=== PATIENT | male | born 1945 | race Caucasian/White ===

== ENCOUNTER → 2016-09-03 | Outpatient (CLI) | payer OTHER ==
--- NOTE | 2016-09-03 18:00 | DX ---
Left knee, 3 views. September 03, 2016. HISTORY: Bony fullness below patella. FINDINGS: Hypertrophic changes compatible with prior Reubens-Schlatter's disease involve the tibial tu bercle, with a horizontal lucency through the tip of the tibial tubercle suggestive of fracture, acut e versus remote. Features of enthesopathy also identified at the quadriceps tendon insertion upon the upper pole of th e patella. Moderate patellofemoral degenerative changes. There is also mild medial compartment joint space narro wing. Lateral compartment is preserved. No fracture or joint effusion. IMPRESSION: 1. Hypertrophic changes of the tibial tubercle, with transverse lucency suggestive of fracture, acute versus prior. 2. Degenerative changes, left knee.
== END ==
LOC: FIMAGING 13:43
PROVIDERS: ATTEND Internal Medicine
DX: M89.9 Disorder of bone, unspecified (principal); M17.12 Unilateral primary osteoarthritis, left knee

== ENCOUNTER 2016-12-17 16:36 | Day surgery (SDC) | payer OTHER ==
[2016-12-17] MEDS ORDERED: NS 1,000 ML IV SCH (17:00)
[2016-12-17] MEDS ORDERED: FLUMAZENIL 0.5 MG/5 ML MDV IVP ONE (17:20)
[2016-12-17] MEDS ORDERED: MIDAZOLAM 2 MG/2 ML VIAL ONE (17:20)
[2016-12-17] MEDS ORDERED: NALOXONE HCL 0.4 MG/ML INJ ONE (17:20)
[2016-12-17] MEDS ORDERED: fentaNYL 100 MCG/2 ML INJ ONE (17:22)
[2016-12-17] MEDS ORDERED: LIDOCAINE 1% 30 ML SDV ONE (17:58)
[2016-12-17] MEDS ORDERED: IOPAMIDOL (ISOVUE-300) 100 ML BTL IV ONE (17:58)
[2016-12-17] MEDS ORDERED: HYDROCODONE/APAP 10/325 TAB ONE (18:34)
[2016-12-17] MEDS ORDERED: HYDROCODONE/APAP 10/325 TAB PO PRN (18:39)
[2016-12-17] MEDS ORDERED: ACETAMINOPHEN 325 MG TAB PO PRN (18:39)
[2016-12-17] MEDS ORDERED: ONDANSETRON 4 MG/2 ML VIAL IVP PRN (18:40)
== END 2016-12-17 19:15 | disposition home or self-care (01) ==
LOC: FIMAGING 16:36
PROVIDERS: ATTEND Specialist
PROC: BT1D1ZZ Fluoroscopy of Right Kidney, Ureter and Bladder using Low Osmolar Contrast (ICD-10-PCS; principal; 2016-12-17 18:25)
PROC: 0T9030Z Drainage of Right Kidney with Drainage Device, Percutaneous Approach (ICD-10-PCS; principal; 2016-12-17 18:25)
DX: N13.2 Hydronephrosis with renal and ureteral calculous obstruction (principal)
CPT/HCPCS: 50432; 99152; C1729; C1769; J0696; J1644; J2250; J2310; J3010; Q9967

== ENCOUNTER → 2016-12-24 | Day surgery (SDC) | payer OTHER ==
[~2016-12-24] MED LIST: IOPAMIDOL (ISOVUE-300) 100 ML BTL IV ONE
== END | disposition home or self-care (01) ==
LOC: FIMAGING 14:42
PROVIDERS: ATTEND Physician Assistant Medical
PROC: 3E0K7KZ Introduction of Other Diagnostic Substance into Genitourinary Tract, Via Natural or Artificial Opening (ICD-10-PCS; principal; 2016-12-24)
PROC: BT16YZZ Fluoroscopy of Right Ureter using Other Contrast (ICD-10-PCS; principal; 2016-12-24)
DX: Z43.6 Encounter for attention to other artificial openings of urinary tract (principal); N20.2 Calculus of kidney with calculus of ureter
CPT/HCPCS: Q9967

== ENCOUNTER 2017-01-16 10:42 | Inpatient (IN) | payer OTHER ==
--- NOTE | 2017-01-15 19:57 | GHP ---
[f rep st] PREOP HISTORY AND PHYSICAL DATE OF ADMISSION: 01/16/2017 ADMISSION DIAGNOSIS: Nonfunctioning right kidney. HISTORY OF PRESENT ILLNESS: This is a 71-year-old gentleman, who has a complicated stone history, a nd presently he has nephrostomy tube draining a right hydronephrotic kidney that has a creatinine cl earance of 1. He is to undergo right robotic-assisted nephrectomy. PAST MEDICAL HISTORY: Atherosclerosis of the aorta, hypertension, kidney stones, ureteral stricture . PAST SURGERY: Back surgery, cholecystectomy, kidney stone surgery, knee. MEDICATIONS: Lisinopril, Uribel, Urocit-K. ALLERGIES: None. FAMILY HISTORY: Noncontributory. SOCIAL HISTORY: Nonsmoker and nondrinker. REVIEW OF SYSTEMS: Negative cardiac, respiratory, GI, and endocrine. PHYSICAL EXAMINATION: VITAL SIGNS: Stable. CHEST: Clear. HEART: Regular rate and rhythm. ABDO MEN: Normal. No organomegaly, rebound, or guarding. LOWER EXTREMITIES: Normal. PLAN: At the present time, he is admitted for a right robotic-assisted nephrectomy and partial uret erectomy. /[id number]/MODL
[~2017-01-16 10:42] MED LIST changes: +BUPIVACAINE 0.5% 30 ML SDV ONE; +D5W LR 1,000 ML IV ONE; -IOPAMIDOL (ISOVUE-300) 100 ML BTL IV ONE; +SURGIFLO MATRIX KIT WITH THROMBIN TP ONE; +THROMBIN (BOVINE) 5,000 UNIT VIAL TP ONE; +ceFAZolin 2 GM/DEXTROSE 100 ML IV ONE
[2017-01-16] MEDS ORDERED: fentaNYL 100 MCG/2 ML INJ ONE ×2 (11:06→16:12)
[2017-01-16] MEDS ORDERED: DEXAMETHASONE 4 MG/ML VIAL ONE (11:06)
[2017-01-16] MEDS ORDERED: HYDROmorphONE/DILAUDID 2 MG/ML INJ ONE (11:06)
[2017-01-16] MEDS ORDERED: LIDOCAINE 2% 100 MG/5 ML SYR ONE (11:06)
[2017-01-16] MEDS ORDERED: ROCURONIUM 50 MG/5 ML VIAL ONE (11:06)
[2017-01-16] MEDS ORDERED: SUGAMMADEX SODIUM 200 MG/2 ML VIAL IVP ONE (11:06)
[2017-01-16] MEDS ORDERED: ONDANSETRON 4 MG/2 ML VIAL ONE (11:06)
[2017-01-16] MEDS ORDERED: PROPOFOL 200 MG/20 ML VIAL ONE (11:07)
[2017-01-16] MEDS ORDERED: CEFAZOLIN 2 GM/DEXTROSE/100 ML BAG IV ONE (11:41)
[2017-01-16 11:47] LABS: % IMMATURE GRANULYOCYTES 0.3 % (0.0-1.1); ABSOLUTE IMMATURE GRANULOCYTES 0.02 10^3/uL (0.00-0.10); ADD DIFF? NO; ADD MORPH? NO; ADD SCAN? NO; ATYPICAL LYMPHOCYTE FLAG 0 (0-99); FRAGMENT RBC FLAG 0 (0-99); HEMATOCRIT 42.2 % (40.0-51.0); HEMOGLOBIN 14.8 g/dL (13.7-17.5); LEFT SHIFT FLG 0 (0-99); LIPEMIA HEMOLYSIS FLAG 90 (0-99); MEAN CELL HEMOGLOBIN CONCENTR. 35.1 g/dL (32.4-36.7); MEAN CELL VOLUME 94.2 fL (81.5-99.8); MEAN PLATELET VOLUME 10.9 fL (8.7-11.7); PLATELET CLUMPS FLAG 0 (0-99); PLATELET COUNT 203 10^3/uL (150-400); RED BLOOD CELL COUNT 4.48 10^6/uL (4.40-6.38); RED CELL DISTRIBUTION WIDTH 11.8 % (11.5-15.2)
[2017-01-16] MEDS ORDERED: MIDAZOLAM 2 MG/2 ML VIAL ONE (12:14)
[2017-01-16] MEDS ORDERED: PHENYLEPHRINE HCL 100 MCG/ML SYR ONE (12:52)
[2017-01-16] MEDS ORDERED: ROCURONIUM 100 MG/10 ML VIAL ONE (13:31)
[2017-01-16] MEDS ORDERED: BUPIVACAINE/EPI 0.5% 30 ML SDV ONE (13:40)
--- NOTE | 2017-01-16 16:14 | GOP ---
[f rep st] OPERATIVE REPORT DATE OF OPERATION: SURGEON: John Rod MD TRAIN STARTER: Viviana Westbrook CFA ANESTHESIA: General. ANESTHESIOLOGIST: Chon Aparicio MD PREOPERATIVE DIAGNOSIS: Hydronephrotic nonfunctioning right kidney. POSTOPERATIVE DIAGNOSIS: Hydronephrotic nonfunctioning right kidney. PROCEDURE PERFORMED: Right robotic-assisted nephrectomy with partial ureterectomy. FINDINGS: SPECIMENS: Sent to Pathology. He will be admitted for postoperative care. I will discuss the issues with his postop. ESTIMATED BLOOD LOSS: Per Anesthesia was 50 mL. DESCRIPTION OF PROCEDURE: This gentleman underwent general anesthesia. After being appropriately p laced on the table, and identifying the correct side, his nephrostomy tube was removed, and then he was prepped and draped in normal sterile fashion. After an appropriate time-out, the procedure was begun. The Veress needle was placed in Samuel point on the right side and insufflated the abdomen to 15 mmH g pressure with CO2. Then, a midclavicular camera port was placed 12 mm under vision, and then the two 8 mm ports, and a 15 mm behavioral modification assistant port were placed in appropriate selected sites. Intraabdomina l inspection revealed no significant pathology. At that point, the right hemicolon was dissected al jeison the white line of Toldt and was mobilized. I could identify the duodenum, which was mobilized. I then identified the ureter. There was a diffuse inflammatory reaction with a lot of lymphedema a round the kidney, renal pelvis, and vessels. So, the dissection was taken meticulously, where I cou ld identify the renal arteries. The smaller lower pole artery was Hem-o-gilles'd with 2 clamps on the patient's side, 1 on the specimen side. Then, when I got to the main renal pelvis, renal vein, and renal artery, that was managed with a 60 mm vascular stapler, and then mobilized the kidney, and the ureter was opened up just above the site of obstruction. Then, the gonadal vessels were clamped with a vascular stapler. Then, continued to do the dissection around the kidney, and the h emostasis applied with the vascular stapler and electrocautery. Then, at the end of the procedure, I decreased the abdominal pressure to 5 mmHg. There was no welling and no bleeding identified. At that point, the specimen was placed in a bag through the 15 mm port. Then closed the camera port wi th a fascial closure stitch of 0 Vicryl. Then opened the behavioral modification assistant port to the point where I could retrieve the specimen through that site, and then reapproximated the anterior rectus sheath and the peritoneum with a running 0 Vicryl. It was felt that there was no tension on the closure and no gap s between the sutures on this closure. Subcutaneous tissue was irrigated. The skin was approximate d with 4-0 Monocryl. I elected not to place a drain. /[id number]/MODL
[2017-01-16] MEDS ORDERED: HYDROmorphONE/DILAUDID 1 MG/ML SYR ONE (16:42)
[2017-01-16] MEDS ORDERED: FLUTICASONE NASAL 120 SPRAYS/16 GM MDI EACHNARE PRN (17:05)
[2017-01-16] MEDS ORDERED: NON-FORMULARY NEW DRUG (Oxycodone Hcl/Acetaminophen [Percocet 10-325 Mg Tablet] 1 EACH) PO PRN (17:05)
[2017-01-16] MEDS ORDERED: ZOLPIDEM TARTRATE 5 MG TAB PO PRN (17:06)
[2017-01-16] MEDS ORDERED: ACETAMINOPHEN 325 MG TAB PO PRN (17:06)
[2017-01-16] MEDS ORDERED: D5W LR 1,000 ML IV SCH (17:15)
[2017-01-16] MEDS ORDERED: oxyCODONE IR 5 MG TAB PO PRN (17:51)
[2017-01-16] MEDS ORDERED: OXYCODONE/APAP 5/325 TAB PO PRN (17:51)
[2017-01-16] MEDS: HYDROmorphONE/DILAUDID 1 MG/ML SYR IVP PRN ×2 (17:54→21:56)
[2017-01-16] MEDS: ONDANSETRON 4 MG/2 ML VIAL IVP PRN ×2 (18:07→21:56)
[2017-01-16] MEDS: OXYCODONE/APAP 5/325 TAB PO PRN (19:57)
[2017-01-16] MEDS: ONDANSETRON DISINTEGRATING 4 MG TAB PO PRN (20:57)
[2017-01-16] MEDS ORDERED: MAG HYDROX/AL HYDROX/SIMETH 30 ML UDCUP PO PRN (23:00)
[2017-01-16] MEDS ORDERED: NALOXONE HCL 0.4 MG/ML INJ IVP PRN (23:01)
[2017-01-16] MEDS ORDERED: LORazepam 1 MG/0.5 ML UDSYR PO ONE (23:15)
[2017-01-16] MEDS: CITALOPRAM 20 MG TAB PO SCH (23:26)
[2017-01-16] MEDS: HYDROmorphONE/DILAUDID 6 MG/30 ML PCA IV PRN (23:26)
[2017-01-16] MEDS: LISINOPRIL 10 MG TAB PO SCH (23:27)
[2017-01-17 05:05] LABS: % IMMATURE GRANULYOCYTES 0.4 % (0.0-1.1); ABSOLUTE IMMATURE GRANULOCYTES 0.04 10^3/uL (0.00-0.10); ADD DIFF? NO; ADD MORPH? NO; ADD SCAN? NO; ATYPICAL LYMPHOCYTE FLAG 0 (0-99); FRAGMENT RBC FLAG 0 (0-99); HEMOGLOBIN 13.8 g/dL (13.7-17.5); LEFT SHIFT FLG 0 (0-99); LIPEMIA HEMOLYSIS FLAG 90 (0-99); MEAN CELL HEMOGLOBIN 32.9 pg (27.9-34.1); MEAN CELL HEMOGLOBIN CONCENTR. 34.5 g/dL (32.4-36.7); MEAN CELL VOLUME 95.2 fL (81.5-99.8); MEAN PLATELET VOLUME 10.9 fL (8.7-11.7); PLATELET CLUMPS FLAG 10 (0-99); PLATELET COUNT 220 10^3/uL (150-400); RED CELL DISTRIBUTION WIDTH 11.8 % (11.5-15.2)
[2017-01-17 05:27] LABS: ANION GAP 11 mEq/L (8-16); CALCIUM 8.8 mg/dL (8.5-10.4); CARBON DIOXIDE 23 mEq/l (22-31); CHLORIDE 101 mEq/L (97-110); CREATININE 1.3 mg/dL (0.7-1.3); GLOMERULAR FILTRATION RATE 55; GLUCOSE 144 mg/dL (70-100); POTASSIUM 4.8 mEq/L (3.5-5.2); SODIUM 135 mEq/L (134-144)
[2017-01-17] MEDS: D5W 1/2 NS 1,000 ML IV SCH (05:55)
--- NOTE | 2017-01-17 07:57 | SOAPPROG ---
SOAP Progress Note Assessment/Plan: Assessment: Hydronephrosis concurrent with and due to ureteral stricture Acute POD 1, doing well, labs ok Plan: Continue post op care 01/17/17 07:56 Subjective: pain under better control Objective: Vital Signs Temp Pulse Resp BP Pulse Ox 36.7 C 84 18 162/80 H 96 01/17/17 06:00 01/17/17 06:00 01/17/17 06:00 01/17/17 06:00 01/17/17 06:00 Laboratory Results 01/17/17 04:44 01/17/17 04:44 01/16/17 01/17/17 01/18/17 05:59 05:59 05:59 Intake Total 3976 500 Output Total 1200 Balance 2776 500 Physical Exam - Physical Exam General Appearance: alert Neck: supple Respiratory: No respiratory distress Cardiac/Chest: regular rate, rhythm Abdomen: soft Back: No CVA tenderness Skin: warm/dry Extremities: No calf tenderness, No Arabella's sign Neuro/Psych: oriented x 3 ICD10 Worksheet Patient Problems: Problems Problem Status Onset Hydronephrosis concurrent with and due to ureteral stricture Acute
[2017-01-17] MEDS ORDERED: POTASSIUM CITRATE 5 MEQ PO SCH (09:00)
[2017-01-17] MEDS ORDERED: CITALOPRAM 20 MG TAB PO SCH (09:00)
[2017-01-17] MEDS ORDERED: LISINOPRIL 10 MG TAB PO SCH (09:00)
[2017-01-17] MEDS: MULTIVITAMINS 1 EACH TAB PO SCH (10:49)
[2017-01-17] MEDS: HYDROmorphONE/DILAUDID 6 MG/30 ML PCA IV PRN (13:13)
[2017-01-17] MEDS ORDERED: POLYETHYLENE GLYCOL 3350 17 GM PKT PO PRN (20:48)
[2017-01-17] MEDS ORDERED: BISACODYL 10 MG SUPP PR PRN (20:48)
[2017-01-17] MEDS ORDERED: LACTULOSE 20 GM/30 ML UDCUP PO PRN (20:48)
[2017-01-17] MEDS ORDERED: MAGNESIUM HYDROXIDE 30 ML UDCUP PO PRN (20:48)
[2017-01-17] MEDS: POTASSIUM CITRATE 5 MEQ PO SCH (21:39)
[2017-01-17] MEDS: SENNOSIDES/DOCUSATE SODIUM TAB PO SCH (21:39)
[2017-01-17] MEDS: LISINOPRIL 10 MG TAB PO SCH (21:39)
[2017-01-17] MEDS: CITALOPRAM 20 MG TAB PO SCH (21:40)
[2017-01-18] MEDS: HYDROmorphONE/DILAUDID 6 MG/30 ML PCA IV PRN (05:08)
[2017-01-18] MEDS: D5W 1/2 NS 1,000 ML IV SCH ×2 (05:12→18:18)
[2017-01-18] MEDS: ONDANSETRON 4 MG/2 ML VIAL IVP PRN ×2 (08:44→17:21)
--- NOTE | 2017-01-18 09:51 | SOAPPROG ---
SOAP Progress Note Assessment/Plan: Assessment: Hydronephrosis concurrent with and due to ureteral stricture Acute POD 2, doing well, labs ok Plan: Continue post op care 01/18/17 09:50 Subjective: no flatus and pain is associated with the gas, no other complaints Objective: Vital Signs Temp Pulse Resp BP Pulse Ox 36.7 C 84 16 122/80 H 93 01/18/17 07:54 01/18/17 07:54 01/18/17 07:54 01/18/17 07:54 01/18/17 07:54 Laboratory Results 01/17/17 04:44 01/17/17 04:44 01/17/17 01/18/17 01/19/17 05:59 05:59 05:59 Intake Total 3976 1465 Output Total 1200 2525 250 Balance 7536 -7260 -250 Physical Exam - Physical Exam General Appearance: alert Neck: full range of motion Respiratory: No respiratory distress Cardiac/Chest: regular rate, rhythm Abdomen: soft (incisions ok) Male Genitalia: normal genitalia Back: No CVA tenderness Skin: warm/dry Extremities: No calf tenderness, No Arabella's sign Neuro/Psych: alert, oriented x 3 ICD10 Worksheet Patient Problems: Problems Problem Status Onset Hydronephrosis concurrent with and due to ureteral stricture Acute
[2017-01-18] MEDS ORDERED: BISACODYL 10 MG SUPP PR ONE (09:55)
[2017-01-18] MEDS: SENNOSIDES/DOCUSATE SODIUM TAB PO SCH ×2 (11:36→20:58)
[2017-01-18] MEDS: MULTIVITAMINS 1 EACH TAB PO SCH (11:37)
[2017-01-18] MEDS: LISINOPRIL 10 MG TAB PO SCH ×2 (18:34→20:58)
[2017-01-18] MEDS: CITALOPRAM 20 MG TAB PO SCH (20:59)
[2017-01-18] MEDS: POTASSIUM CITRATE 5 MEQ PO SCH (20:59)
[2017-01-19] MEDS: ONDANSETRON DISINTEGRATING 4 MG TAB PO PRN (04:37)
[2017-01-19 08:22] VITALS: RESP 16
[2017-01-19] MEDS: MULTIVITAMINS 1 EACH TAB PO SCH (08:29)
[2017-01-19] MEDS: SENNOSIDES/DOCUSATE SODIUM TAB PO SCH (08:29)
[2017-01-19] MEDS: HYDROmorphONE/DILAUDID 6 MG/30 ML PCA IV PRN (08:54)
[2017-01-19 10:45] VITALS: O2SAT 93
--- NOTE | 2017-01-19 10:47 | SOAPPROG ---
SOAP Progress Note Assessment/Plan: Assessment: Hydronephrosis concurrent with and due to ureteral stricture Acute POD 3, doing well, Bowel fx good and pt desires dc this afternoon. Pain meds at home Plan: dc home 01/19/17 11:18 Subjective: doing well, desires dc this afternoon Objective: Vital Signs Temp Pulse Resp BP Pulse Ox 36.9 C 72 16 132/83 H 93 01/19/17 10:45 01/19/17 10:45 01/19/17 10:45 01/19/17 10:45 01/19/17 10:45 Laboratory Results 01/17/17 04:44 01/17/17 04:44 01/18/17 01/19/17 01/20/17 05:59 05:59 05:59 Intake Total 1465 2237 Output Total 2525 250 Balance -1060 1987 Physical Exam - Physical Exam General Appearance: alert Respiratory: No respiratory distress Cardiac/Chest: regular rate, rhythm Abdomen: non-tender, No guarding Back: No CVA tenderness Extremities: No calf tenderness, No Arabella's sign Neuro/Psych: alert, oriented x 3 ICD10 Worksheet Patient Problems: Problems Problem Status Onset Hydronephrosis concurrent with and due to ureteral stricture Acute
[2017-01-19] MEDS: OXYCODONE/APAP 5/325 TAB PO PRN (11:41)
--- NOTE | 2017-01-19 11:56 | GDS ---
[f rep st] DISCHARGE SUMMARY ADMISSION DIAGNOSIS: Hydronephrotic nonfunctioning right kidney. DISCHARGE DIAGNOSIS: Hydronephrotic nonfunctioning right kidney. PROCEDURES DURING HOSPITALIZATION: Right robotic assisted nephrectomy with partial ureterectomy. HOSPITAL COURSE: The gentleman on the day of admission had the above procedure performed. Postoper ative course was remarkable only in that he had a bit of a postop ileus and on postop day 3, he is f unctioning well desiring to go home. He is discharged home. Pathology is pending. He is to have f zacklow up with me in 3 weeks. He reports having adequate Percocet at home for pain control, and he h as been informed that he needs to be ambulating in attempt to prevent any blood clots at the present time, elected not to use anticoagulation in this postoperative patient. He is aware of the risk of DVT, pulmonary emboli without that and the ambulation would be the therapy of choice for prevention of DVT formation. /[id number]/MODL
[2017-01-19 12:18] VITALS: BP 154/83; PULSE 91; TEMP 98
== END 2017-01-19 12:55 | disposition home or self-care (01) | DRG 660 ==
LOC: F3E 10:42 → F1N 17:41
PROVIDERS: ADMIT Specialist; ATTEND Specialist
PROC: 0TP530Z Removal of Drainage Device from Kidney, Percutaneous Approach (ICD-10-PCS; principal; 2017-01-16 12:00)
PROC: 0TT04ZZ Resection of Right Kidney, Percutaneous Endoscopic Approach (ICD-10-PCS; principal; 2017-01-16 12:00)
PROC: 8E0W4CZ Robotic Assisted Procedure of Trunk Region, Percutaneous Endoscopic Approach (ICD-10-PCS; principal; 2017-01-16 12:00)
PROC: 0TB64ZZ Excision of Right Ureter, Percutaneous Endoscopic Approach (ICD-10-PCS; principal; 2017-01-16 12:00)
DX: N11.1 Chronic obstructive pyelonephritis (principal); K56.7 Ileus, unspecified; Z87.442 Personal history of urinary calculi; I10 Essential (primary) hypertension
CPT/HCPCS: J0690; J1100; J1170; J2001; J2250; J2370; J2405; J2704; J3010

== ENCOUNTER 2017-06-16 05:57 | Inpatient (IN) | payer OTHER ==
[2017-06-16] MEDS ORDERED: morphINE PF 5 MG/10 ML INJ IT ONE (06:35)
[2017-06-16] MEDS ORDERED: fentaNYL 100 MCG/2 ML INJ IT ONE (06:35)
[2017-06-16] MEDS ORDERED: ACETAMINOPHEN 500 MG TAB PO ONE (06:35)
[2017-06-16] MEDS ORDERED: ceFAZolin 2 GM/SWFI 2 GM/20 ML SYR IVP ONE ×2 (06:35→06:45)
[2017-06-16] MEDS ORDERED: GABAPENTIN 300 MG CAP PO ONE (06:35)
[2017-06-16] MEDS ORDERED: TRANEXAMIC ACID 1,000 MG in NS 100 ML IV ONE (06:35)
[2017-06-16] MEDS ORDERED: ACETAMINOPHEN 500 MG TAB ONE (06:38)
[2017-06-16] MEDS ORDERED: GABAPENTIN 300 MG CAP ONE (06:38)
[2017-06-16] MEDS ORDERED: ceFAZolin 2 GM/SWFI 20 ML SYR IVP ONE (06:38)
[2017-06-16] MEDS ORDERED: HYDROCODONE/APAP 5/325 TAB PO PRN (06:53)
[2017-06-16] MEDS ORDERED: ALBUTEROL 3 ML DEYVIAL IH PRN (06:53)
[2017-06-16] MEDS ORDERED: ACETAMINOPHEN 500 MG TAB PO PRN (06:53)
[2017-06-16] MEDS ORDERED: OXYCODONE/APAP 5/325 TAB PO PRN (06:53)
[2017-06-16] MEDS ORDERED: ONDANSETRON 4 MG/2 ML VIAL IVP PRN ×2 (06:53→10:23)
[2017-06-16] MEDS ORDERED: PROMETHAZINE HCL 25 MG/ML INJ IVP PRN (06:53)
[2017-06-16] MEDS ORDERED: fentaNYL 100 MCG/2 ML INJ IVP PRN (06:53)
[2017-06-16] MEDS ORDERED: NALOXONE HCL 0.4 MG/ML INJ IVP PRN ×2 (06:53→10:23)
[2017-06-16] MEDS ORDERED: HYDROmorphONE/DILAUDID 1 MG/ML INJ IVP PRN (06:53)
[2017-06-16] MEDS ORDERED: MIDAZOLAM 2 MG/2 ML VIAL IVP ONE (06:53)
[2017-06-16] MEDS ORDERED: LR 500 ML IV PRN (06:53)
--- NOTE | 2017-06-16 06:56 | PDANEPAE ---
ANE History of Present Illness Lumbar Fusion ANE Past Medical History - Cardiovascular History Hx Hypertension: Yes Hx Arrhythmias: No Hx Chest Pain: No Hx Coronary Artery / Peripheral Vascular Disease: No Hx CHF / Valvular Disease: No Hx Palpitations: No Cardiovascular History Comment: pcp monitors bp medications - Pulmonary History Hx COPD: No Hx Asthma/Reactive Airway Disease: No Hx Recent Upper Respiratory Infection: No Hx Oxygen in Use at Home: No Hx Sleep Apnea: No Sleep Apnea Screening Result - Last Documented: Positive Pulmonary History Comment: lanny triggers - Neurologic History Hx Cerebrovascular Accident: No Hx Seizures: No Hx Dementia: No - Endocrine History Hx Diabetes: No - Renal History Hx Renal Disorders: Yes Renal History Comment: 05/27/17 lithotripsy at the surgery center with Marcel. 01/16/17 Right nephrectomy with Marcel. hx of kidney stones - Liver History Hx Hepatic Disorders: No - Neurological & Psychiatric Hx Hx Neurological and Psychiatric Disorders: No - Cancer History Hx Cancer: No - Congenital Disorder History Hx Congenital Disorders: No - GI History Hx Gastrointestinal Disorders: No - Other Health History Other Health History: left prosthetic eye. wears glasses - Chronic Pain History Chronic Pain: Yes (back pain) - Surgical History Prior Surgeries: 05/27/17 lithotripsy with Marcel at the surgery center. Davinci right nephrectomy with Marcel. lithotripsy 11/2016 and 3 other times. Laminectomy x2. Spinal fusion. natty. right knee patella repair in ANE Review of Systems Review of Systems: - Exercise capacity METS (RN): 4 METS ANE Patient History - Allergies Allergies/Adverse Reactions: No Allergies [NKA] Allergy (Verified 05/30/17 11:55) - Home Medications Home Medications: Citalopram Hydrobromide [celeXA 10 MG] 10 mg PO HS 12/17/16 [Last Taken 01/16/17 ] oxyCODONE HCL/ACETAMINOPHEN [Percocet 10-325 mg Tablet] 1 each PO Q6HRS PRN 10/04 [Last Taken 01/16/17] Multivitamins [Multivitamin (*)] 1 each PO DAILY 01/09/17 [Last Taken 01/16/17] Potassium Citrate [Potassium Citrate ER] 15 meq PO HS 01/09/17 [Last Taken 01/16] - Smoking Hx Smoking Status: Never smoked - Family Anes Hx Family Hx Anesthesia Complications: None ANE Labs/Vital Signs - Vital Signs Height: 185.42 cm Weight: 104.326 kg ANE Physical Exam - Airway Neck exam: FROM Mallampati Score: Class 2 Mouth exam: normal dental/mouth exam - Pulmonary Pulmonary: clear to auscultation - Cardiovascular Cardiovascular: regular rate and rhythym - ASA Status ASA Status: III ANE Anesthesia Plan Anesthesia Plan: general endotracheal anesthesia
[2017-06-16] MEDS ORDERED: CITRATE DEXTROSE SOLN 500 ML BAG ONE (07:01)
[2017-06-16] MEDS ORDERED: REMIFENTANIL HCL 1 MG VIAL ONE ×3 (07:01)
[2017-06-16] MEDS ORDERED: PROPOFOL/EMULSION 500 MG/50 ML BOTTLE IV ONE ×3 (07:01→07:02)
--- NOTE | 2017-06-16 07:09 | PDHPUP ---
History & Physical Update H&P update statement: This history and physical update is based on an assessment of the patient which was completed after admission or registration (within 24 hours), but prior to the surgery/procedure. H&P update: H&P reviewed & patient examined, no change in patient's condition since H&P completed
[2017-06-16] MEDS ORDERED: LIDOCAINE 2% 5 ML SDV ONE (07:10)
[2017-06-16] MEDS ORDERED: DEXAMETHASONE 4 MG/ML VIAL ONE ×2 (07:11)
[2017-06-16] MEDS ORDERED: ONDANSETRON 4 MG/2 ML VIAL ONE (07:11)
[2017-06-16] MEDS ORDERED: SUCCINYLCHOLINE CHLORIDE*ANESTHESIA ONLY*200 MG/10 ML SYR IVP ONE (07:11)
[2017-06-16] MEDS ORDERED: HYDROmorphONE/DILAUDID 2 MG/ML INJ ONE (07:12)
[2017-06-16] MEDS ORDERED: THROMBIN (BOVINE) 5,000 UNIT VIAL TP ONE (07:13)
[2017-06-16] MEDS ORDERED: BUPIVACAINE 0.25% 30 ML SDV ONE (07:13)
[2017-06-16] MEDS ORDERED: BACITRACIN 50,000 UNITS/10 ML SYR IRR ONE (07:14)
[2017-06-16] MEDS ORDERED: fentaNYL 100 MCG/2 ML INJ ONE ×2 (09:32→11:18)
[2017-06-16] MEDS ORDERED: morphINE PF 5 MG/10 ML INJ ONE (09:33)
[2017-06-16] MEDS ORDERED: diphenhydrAMINE 25 MG CAP PO PRN (10:23)
[2017-06-16] MEDS ORDERED: BISACODYL 10 MG SUPP PR PRN (10:23)
[2017-06-16] MEDS ORDERED: DIAZEPAM 5 MG TAB PO PRN (10:23)
[2017-06-16] MEDS ORDERED: LACTULOSE 20 GM/30 ML UDCUP PO PRN (10:23)
[2017-06-16] MEDS ORDERED: morphINE PCA 30 MG/30 ML PCA IV PRN (10:23)
[2017-06-16] MEDS ORDERED: ONDANSETRON DISINTEGRATING 4 MG TAB PO PRN (10:23)
[2017-06-16] MEDS ORDERED: MAGNESIUM HYDROXIDE 30 ML UDCUP PO PRN (10:23)
[2017-06-16] MEDS ORDERED: NS W/ 20 KCl/L 1,000 ML IV SCH (10:30)
--- NOTE | 2017-06-16 10:30 | SOAPPROG ---
SOAP Progress Note Assessment/Plan: Assessment: 72 yo M sp hardware removal L2/3, L3/4 TLIF Plan: stable to 3N Paco Katz to fit LSO brace please call with neuro changes 06/16/17 10:28 Subjective: + back pain, no leg pain Objective: Vital Signs Temp Pulse Resp BP Pulse Ox 36.9 C 78 16 172/92 H 94 06/16/17 06:43 06/16/17 06:43 06/16/17 06:43 06/16/17 06:43 06/16/17 06:43 Awake, alert PERRL, no facial droop ANGELIC x 4 + light touch ICD10 Worksheet Patient Problems: Problems Problem Status Onset Fusion of spine of lumbar region Acute Hydronephrosis concurrent with and due to ureteral stricture Acute - ICD10 Problem Qualifiers (1) Fusion of spine of lumbar region
--- NOTE | 2017-06-16 10:33 | POSTANESTH ---
Post Anesthetic Evaluation Cardiovascular Status: Normal, Stable Respiratory Status: Normal, Stable Level of Consciousness/Mental Status: Can Participate in Eval, Mildly Sleepy, Arousable Pain Control: Adequate, Prn Tx Ordered Nausea/Vomiting Control: Adequate, Prn Tx Ordered Complications Possibly Related to Anesthesia: None Noted
[2017-06-16] MEDS: fentaNYL 100 MCG/2 ML INJ IVP PRN ×2 (11:20→11:30)
--- NOTE | 2017-06-16 11:20 | GOP ---
[f rep st] OPERATIVE REPORT DATE OF OPERATION: 06/16/2017 SURGEON: Jr Russell MD LPN OR MEDICAL ASSISTANT: BERNARD Beck. ANESTHESIA: General endotracheal. PREOPERATIVE DIAGNOSIS: 1. Severe adjacent level degeneration, critical spinal stenosis, and lateral recess impingement at L 3-4 status post prior L2-3 instrumented decompression and fusion. 2. Intractable back pain. 3. Intractable left greater than right lower extremity radicular and neurogenic claudication symptom s. 4. Failed conservative care. POSTOPERATIVE DIAGNOSIS: 1. Severe adjacent level degeneration, critical spinal stenosis, and lateral recess impingement at L 3-4 status post prior L2-3 instrumented decompression and fusion. 2. Intractable back pain. 3. Intractable left greater than right lower extremity radicular and neurogenic claudication symptom s. 4. Failed conservative care. PROCEDURE PERFORMED: 1. Removal of posterior nonsegmental (pedicle screw) fixation at L2-3 with left-sided L3-4 far later al transpedicular decompression with redo left L2-3 posterior hemilaminectomy, medial facetectomy, fo raminotomy, and decompression. 2. L3-4 posterior nonsegmental (pedicle screw) fixation and posterolateral fusion with local autogra ft and bone morphogenic protein. 3. L3-4 posterior/transforaminal lumbar interbody fusion with 2 structural PEEK interbody spacers, l ocal autograft, and bone morphogenic protein. 4. Use of intraoperative microscopy with fluoroscopy and computer volumetric stereotactic navigation with intraoperative neurophysiologic testing. 5. Injection of intrathecal narcotic analgesics and subcutaneous and intramuscular local anesthesia for postoperative pain control. 6. Posterolateral fusion at L2-3 with local autograft and bone morphogenic protein. FINDINGS: ESTIMATED BLOOD LOSS: 150 cc. INDICATIONS: The patient is a 72-year-old man with history of prior L2-3 instrumented decompression and fusion who has severe adjacent level degeneration, critical spinal stenosis, and lateral recess i mpingement. He has intractable low back pain and left greater than right lower extremity radicular a nd neurogenic claudication symptoms that have failed to improve with extensive conservative care and presents now for removal and replacement of hardware and extension of the decompression, fusion, and instrumentation. DESCRIPTION OF PROCEDURE: After informed consent was obtained, the patient was taken to the operatin g room and placed in the prone position on the Servando table. The lumbosacral area was prepped and d raped in a sterile fashion. After fluoroscopic localization of correct levels, the subcutaneous and intramuscular tissues were infiltrated with local anesthesia. A midline linear incision was then cre ated from approximately L2-L4. This was carried down to the fascial layer, which was incised using m onopolar electrocautery and carried in a subperiosteal plane along the spinous processes and lamina b ilaterally. Intraoperative fluoroscopy was again utilized to verify the correct levels. Following t his, the dissection was carried out over the facet joints and prior instrumentation, which was carefu lly removed in the standard fashion at L2-3. The holes in the pedicles were packed with Gelfoam. Th e prior scar tissue was extensively removed and scraped down to fresh bone throughout this area from L2-L4. The microscope was brought in and a left-sided far lateral transpedicular decompression was p erformed at the L3-4 level with complete unroofing of the facet joint and neural foramen as well as t he central canal and lateral recess. A redo posterior hemilaminectomy and medial facetectomy were pe rformed at the L2-3 level on the left. Following adequate decompression, the [employer] neuronavigation al system was brought in and using computer volumetric stereotactic navigation, pedicle screws were p laced at L3 and L4 bilaterally. Each individual screw was tested neurophysiologically with monopolar electrostimulation and interpretation of the potentials by the surgeon. Rods were then placed and s ecured under distraction during which time, a complete diskectomy was performed at the L3-4 level wit h preparation of the endplates and placement of 2 structural PEEK interbody spacers, local autograft, and bone morphogenic protein for an L3-4 posterior/transforaminal lumbar interbody fusion. The scre w and cameron system was then placed in a slight amount of compression in order to facilitate bony union and to minimize the potential for posterior graft migration. Following this, 200 mcg of Duramorph al jeison with 50 mcg of fentanyl were injected intrathecally for postoperative pain control. The remainin g facet joint on the right and the lamina were extensively decorticated from L2-L4 and the residual l ocal autograft along with bone morphogenic protein was placed out laterally for an L2-L4 posterolater al fusion. A drain was then placed, and the subcutaneous and intramuscular tissues were re-infiltrat ed with local anesthesia. The wound was closed in a layered fashion using interrupted Vicryl sutures followed by Steri-Strips on the skin. COMPLICATIONS: None. DISPOSITION: The patient was extubated and transferred to the recovery room in stable condition. /[id number]/MODL
[2017-06-16] MEDS ORDERED: HYDROmorphONE/DILAUDID 1 MG/ML INJ ONE (11:32)
[2017-06-16] MEDS: oxyCODONE IR 5 MG TAB PO PRN ×3 (12:45→22:00)
[2017-06-16] MEDS: METHOCARBAMOL 750 MG TAB PO PRN (12:46)
[2017-06-16] MEDS: ACETAMINOPHEN 500 MG TAB PO SCH ×2 (13:57→21:58)
[2017-06-16] MEDS: ceFAZolin 2 GM/DEXTROSE 100 ML IV SCH ×2 (13:57→22:01)
[2017-06-16] MEDS: POLYETHYLENE GLYCOL 3350 17 GM PKT PO SCH ×2 (16:59→22:01)
[2017-06-16] MEDS ORDERED: POTASSIUM CITRATE 15 MEQ PO SCH (21:00)
[2017-06-16] MEDS ORDERED: CITALOPRAM 20 MG TAB PO SCH (21:00)
[2017-06-16] MEDS ORDERED: NON-FORMULARY NEW DRUG (Citalopram Hydrobromide [Celexa 10 Mg] 10 MG) PO SCH (21:00)
[2017-06-16] MEDS ORDERED: morphINE SR 15 MG TAB PO SCH (21:00)
[2017-06-16] MEDS: SENNOSIDES/DOCUSATE SODIUM TAB PO SCH (21:59)
[2017-06-16] MEDS: FAMOTIDINE 20 MG TAB PO SCH (22:00)
[2017-06-16] MEDS: morphINE SR 30 MG TAB PO SCH (22:00)
[2017-06-16 23:04] VITALS: RESP 18
[2017-06-17] MEDS: oxyCODONE IR 5 MG TAB PO PRN ×3 (03:08→15:24)
[2017-06-17 05:11] LABS: % IMMATURE GRANULYOCYTES 0.4 % (0.0-1.1); ABSOLUTE IMMATURE GRANULOCYTES 0.05 10^3/uL (0.00-0.10); ADD DIFF? NO; ADD MORPH? NO; ADD SCAN? NO; ATYPICAL LYMPHOCYTE FLAG 0 (0-99); FRAGMENT RBC FLAG 0 (0-99); HEMATOCRIT 33.9 % (40.0-51.0); HEMOGLOBIN 12.2 g/dL (13.7-17.5); LEFT SHIFT FLG 0 (0-99); LIPEMIA HEMOLYSIS FLAG 90 (0-99); MEAN CELL HEMOGLOBIN 33.9 pg (27.9-34.1); MEAN CELL VOLUME 94.2 fL (81.5-99.8); MEAN PLATELET VOLUME 10.7 fL (8.7-11.7); PLATELET CLUMPS FLAG 0 (0-99); PLATELET COUNT 166 10^3/uL (150-400); RED CELL DISTRIBUTION WIDTH 12.3 % (11.5-15.2)
[2017-06-17 05:22] LABS: CALCIUM 8.5 mg/dL (8.5-10.4); CARBON DIOXIDE 26 mEq/l (22-31); CHLORIDE 105 mEq/L (97-110); CREATININE 1.4 mg/dL (0.7-1.3); GLOMERULAR FILTRATION RATE 50; GLUCOSE 133 mg/dL (70-100); SODIUM 139 mEq/L (134-144)
[2017-06-17] MEDS: ACETAMINOPHEN 500 MG TAB PO SCH ×2 (06:31→15:23)
[2017-06-17] MEDS: METHOCARBAMOL 750 MG TAB PO PRN ×2 (06:32→15:24)
[2017-06-17 07:11] LABS: ANION GAP 8 mEq/L (8-16); POTASSIUM 4.7 mEq/L (3.5-5.2)
--- NOTE | 2017-06-17 07:53 | SOAPPROG ---
SOAP Progress Note Assessment/Plan: Assessment: 72 yo M POD #1 hardware removal L2/3, L3/4 TLIF Plan: stable and doing well overall :) x-rays today LSO brace when out of bed scd/marisol/lovenox for dvt prophylaxis please call with neuro changes discussed with Dr Nugent 06/16/17 10:28 06/17/17 07:51 Subjective: + back pain, no leg pain. no weakness. Objective: Vital Signs Temp Pulse Resp BP Pulse Ox 37.0 C 86 18 128/71 H 97 06/17/17 07:40 06/17/17 07:40 06/17/17 07:40 06/17/17 07:40 06/17/17 07:40 Laboratory Results 06/17/17 04:42 06/17/17 04:42 06/16/17 06/17/17 06/18/17 05:59 05:59 05:59 Intake Total 4420 Output Total 2885 300 Balance 1535 -300 AAOx4, +FC PERRL, EOMI, no facial droop 5/5 + light touch C/D/I ICD10 Worksheet Patient Problems: Problems Problem Status Onset Fusion of spine of lumbar region Acute Hydronephrosis concurrent with and due to ureteral stricture Acute - ICD10 Problem Qualifiers (1) Fusion of spine of lumbar region
[2017-06-17] MEDS ORDERED: ENOXAPARIN 40 MG/0.4 ML SYR SC SCH (09:00)
[2017-06-17] MEDS: POLYETHYLENE GLYCOL 3350 17 GM PKT PO SCH ×2 (09:33→15:23)
[2017-06-17] MEDS: morphINE SR 30 MG TAB PO SCH (09:34)
[2017-06-17] MEDS: SENNOSIDES/DOCUSATE SODIUM TAB PO SCH (09:34)
[2017-06-17] MEDS: FAMOTIDINE 20 MG TAB PO SCH (09:34)
--- NOTE | 2017-06-17 10:50 | ASMTCMCOM ---
CM Note CM Note Notes: Spoke w/RN, PT, and OT, re; dc poc. Anticipate pt will dc home w/support of when medically stable. CM available for any changes. Date Signed: 06/17/2017 10:49 AM Electronically Signed By:Sulema Pierson RN
[2017-06-17 11:46] VITALS: O2SAT 95
[2017-06-17 15:40] VITALS: BP 145/79; PULSE 79; TEMP 97.9
[2017-06-17] MEDS ORDERED: POTASSIUM CITRATE 15 MEQ PO SCH (21:00)
--- NOTE | 2017-06-18 16:00 | ASDISCHSUM ---
Discharge Information Plan Status:Home with No Needs Medically Cleared to Leave:06/17/2017 Discharge Date:06/17/2017 05:38 PM CM D/C Disposition: ADT D/C Disposition:Home, Routine, Self-Care Projected Discharge Date:06/17/2017 12:00 AM Transportation at D/C: Discharge Delay Reason: Follow-Up Date:06/17/2017 12:00 AM Discharge Slot: Final Diagnosis: Placement Information Patient Contact Information Contact Name:FERNY Relationship: Address:[address] [address] [facility] City:[place] Alternate Phone: [facility]/Zip Code:[place] [address] Email: Financial Information Financial Class:Medicare Advantage Plans Primary Plan Desc:[employer] MEDICARE ADV Primary Plan Number:[id number] Secondary Plan Desc: Secondary Plan Number: Assessment Information [facility] CM Progress Note CM Note CM Note Notes: Spoke w/RN, PT, and OT, re; dc poc. Anticipate pt will dc home w/support of when medically stable. CM available for any changes. Date Signed: 06/17/2017 10:49 AM Electronically Signed By:Sulema Pierson RN Intervention Information
== END 2017-06-17 17:38 | disposition home or self-care (01) | DRG 460 ==
LOC: F3N 05:57
PROVIDERS: ADMIT Neurological Surgery; ATTEND Neurological Surgery
PROC: 4A1004G Monitoring of Central Nervous Electrical Activity, Intraoperative, Open Approach (ICD-10-PCS; principal; 2017-06-16 07:15)
PROC: 0SP00AZ Removal of Interbody Fusion Device from Lumbar Vertebral Joint, Open Approach (ICD-10-PCS; principal; 2017-06-16 07:15)
PROC: 0ST20ZZ Resection of Lumbar Vertebral Disc, Open Approach (ICD-10-PCS; principal; 2017-06-16 07:15)
PROC: 0SG00AJ Fusion of Lumbar Vertebral Joint with Interbody Fusion Device, Posterior Approach, Anterior Column, Open Approach (ICD-10-PCS; principal; 2017-06-16 07:15)
PROC: 00NY0ZZ Release Lumbar Spinal Cord, Open Approach (ICD-10-PCS; principal; 2017-06-16 07:15)
PROC: 8E0WXBZ Computer Assisted Procedure of Trunk Region (ICD-10-PCS; principal; 2017-06-16 07:15)
DX: M48.062 Spinal stenosis, lumbar region with neurogenic claudication (principal); M54.16 Radiculopathy, lumbar region; I10 Essential (primary) hypertension; G47.33 Obstructive sleep apnea (adult) (pediatric)
CPT/HCPCS: 97161-GP; 97165-GO; C1713; G8987-GO-CI; G8988-GO-CI; G8989-GO-CI; J0171; J0330; J0690; J1100; J1170; J1650; J2250; J2274; J2405; J2704; J3010; J7060